=== PATIENT | male | born 1965 | race Caucasian/White ===

== ENCOUNTER 2025-03-19 15:05 | Emergency (ER) | payer OTHER ==
[~2025-03-19] VITALS: Ht 172.7 cm; Wt 80.9 kg
[2025-03-19 15:14] VITALS: BP 138/78; PULSE 62; RESP 18; TEMP 97.7; O2SAT 100
[2025-03-19] MEDS ORDERED: CEPH-558 PO (16:56)
[2025-03-19] MEDS ORDERED: DOXY-354 PO (16:56)
[2025-03-19] MEDS ORDERED: BACI28.410 TP (16:56)
== END 2025-03-19 17:14 | disposition home or self-care (01) ==
LOC: EMS 15:05
DX: H00.031 Abscess of right upper eyelid (principal)
CPT/HCPCS: 99283; Z7502